=== PATIENT | male | born 1940 | race American Indian/Alaskan Native ===

== ENCOUNTER 2019-04-09 22:05 | Emergency (ER) | payer MEDICARE ==
--- NOTE | 2019-04-09 22:25 | Event Note ---
ED Screening Note Date of service: 04/09/19 Time: 22:24 ED Screening Note: 78 y o male presents withright knee pain and swelling x 2 days This initial assessment/diagnostic orders/clinical plan/treatment(s) is/are subject to change based on patients health status, clinical progression and re-assessment by fellow clinical providers in the ED. Further treatment and workup at subsequent clinical providers discretion. Patient/guardian urged not to elope from the ED as their condition may be serious if not clinically assessed and managed. Initial orders include: xr knee
--- NOTE | 2019-04-09 23:09 | XRay Report ---
HISTORY:MAIN: rt knee pain for 2 days COMPARISON: None. TECHNIQUE: AP lateral and obliques views were obtained FINDINGS: Bones: No fracture or dislocation. Joint spaces: Moderate narrowing of the patellofemoral articulation is noted and mild narrowing of th e femoral tibial articulation is noted.. Soft tissues: No significant abnormality. Additional findings: None. IMPRESSION: 1. Degenerative changes as noted Signer Name: Micah Oscar MD Signed: 04/09/2019 11:04 PM Workstation Name: [id number]
[2019-04-10] MEDS ORDERED: HYDROcodone/ACETAMINOPHEN 5-325 MG TAB PO ONE (00:24)
[2019-04-10] MEDS ORDERED: KETOROLAC 30 MG/1 ML INJ IM ONE (00:24)
--- NOTE | 2019-04-10 01:32 | Emergency Department Report ---
HPI - General Chief Complaint: Extremity Injury, Lower Time Seen by Provider: 04/10/19 00:05 - HPI HPI: 78-year-old male presents to the emergency department with a complaint of some right knee pain going on for the past 4-5 days and getting progressive worse. He also feels like it has become slightly swollen. He has trouble fully extending his knee. He flexes the knee pain seems to go down into the upper portion of his right calf. He denies any fall or trauma or inciting injury/event. He has a past medical history of remote colon cancer, CVA without residual deficits, xmg-[id number]-cnoormyot diabetes, hypertension. He has not taken anything for her symptoms prior to presentation. No recent travel, surgery or immobility. ED Past Medical Hx - Past Medical History Previous Medical History?: Yes Hx Hypertension: Yes Hx CVA: Yes Hx Diabetes: Yes Hx of Cancer: Yes (colon) - Surgical History Past Surgical History?: Yes Additional Surgical History: colon - Social History Smoking Status: Former Smoker Substance Use Type: None - Medications Home Medications: Home Medications Medication Instructions Recorded Confirmed Last Taken Type HYDROcodone/APAP 5-325 [Hammond 1 each PO Q6HR PRN #10 tablet 04/10/19 Unknown Rx 5/325] ED Review of Systems ROS: Stated complaint: LEG PAIN Other details as noted in HPI Comment: All other systems reviewed and negative Constitutional: denies: chills, fever Respiratory: denies: cough, shortness of breath Cardiovascular: edema (right knee swelling). denies: chest pain Musculoskeletal: joint swelling, arthralgia, myalgia Skin: denies: rash, change in color Neurological: denies: numbness, paresthesias Physical Exam - Physical Exam Vital Signs: Vital Signs 04/09/19 22:11 Temperature 99.2 F Pulse Rate 70 Respiratory 18 Rate Blood Pressure 151/68 O2 Sat by Pulse 98 Oximetry Physical Exam: GENERAL: The patient is well-developed well-nourished. HEENT: Normocephalic. Atraumatic. Patient has moist mucous membranes. EYES: Extraocular motions are intact. NECK: Supple. Trachea is midline. CHEST/LUNGS: Clear to auscultation. There is no respiratory distress noted. HEART/CARDIOVASCULAR: Regular. There is no tachycardia. ABDOMEN: There is no abdominal distention. SKIN: Skin is warm and dry. There is no appreciable edema to the affected right knee. No erythema, rash, warmth or fluctuance. NEURO: The patient is awake, alert, and oriented. The patient is cooperative. The patient has no focal neurologic deficits. The patient has normal speech. MUSCULOSKELETAL: There is some tenderness to palpation to the anterior right knee. Negative anterior and posterior drawer test. No laxity with valgus or varus stress of the affected right knee. There is some decreased extension to the right knee. ED Course Vital Signs 04/09/19 22:11 Temperature 99.2 F Pulse Rate 70 Respiratory 18 Rate Blood Pressure 151/68 O2 Sat by Pulse 98 Oximetry ED Medical Decision Making - Radiology Data Radiology results: image reviewed interpreted by me: X-ray of the right knee shows degenerative changes but does not show any fracture or dislocation. - Medical Decision Making Patient presents with a few days of atraumatic right knee pain. X-ray shows some osteoarthritis and degenerative changes but no fracture or dislocation. Do not see any appreciable swelling. There is no erythema, warmth or fluctuance. Patient was given a shot of Toradol and Hammond. Upon reevaluation he is feeling improved. He has been given crutches and a referral for an orthopedist. Since the patient says that sometimes the pain will radiate down into the calf, he has been set up for outpatient venous Doppler ultrasound. If positive he will be redirected to the emergency department. If negative he will continue on for outpatient follow-up with the orthopedist. - Differential Diagnosis osteoarthritis, bursitis, tendinitis, fracture, dislocation Critical Care Time: No Critical care attestation.: If time is entered above; I have spent that time in minutes in the direct care of this critically ill patient, excluding procedure time. ED Disposition Clinical Impression: Right knee pain Qualifiers: Chronicity: acute Qualified Code(s): M25.561 - Pain in right knee Disposition: DC-01 TO HOME OR SELFCARE Is pt being admited?: No Condition: Stable Instructions: Knee Pain (ED), Arthralgia (ED) Additional Instructions: Please follow up with an orthopedist in the next few days and I have given a referral for 2 local orthopedists. Return to the emergency Department with any worsening of your symptoms or any acute distress. You have been prescribed a medication that can be sedating. Therefore, do not take this medication prior to driving, working, being responsible for children, and it cannot be mixed with alcohol of any quantity. Please call the phone number listed on your discharge paperwork to schedule your outpatient venous Doppler ultrasound of your leg to rule out a blood clot. If positive, he will be redirected to the emergency department. If negative, continue with the previously mentioned outpatient plan. Prescriptions: HYDROcodone/APAP 5-325 [Hammond 5/325] 1 each PO Q6HR PRN #10 tablet PRN Reason: Pain Referrals: ALEXANDRA THEODORE MD [Staff Physician] - 2-3 Days [facility] [Provider Group] - 2-3 Days Time of Disposition: 01:31
[2019-04-10 01:57] VITALS: BP 142/72
== END 2019-04-10 01:58 | disposition home or self-care (01) ==
LOC: ED 22:05
DX: M25.561 Pain in right knee (principal); Z86.73 Personal history of transient ischemic attack (TIA), and cerebral infarction without residual deficits; Z87.891 Personal history of nicotine dependence; Z79.899 Other long term (current) drug therapy
CPT/HCPCS: 73562; 82962; 96372; 99284; J1885

== ENCOUNTER 2019-04-10 11:16 | Outpatient (CLI) | payer MEDICARE ==
--- NOTE | 2019-04-10 12:32 | Vascular Lab Report ---
DUPLEX DOPPLER LOWER EXTREMITY VEINS, RIGHT INDICATION: Right leg pain for 3 days, diabetes, hypertension, obesity. TECHNIQUE: Duplex doppler imaging was performed through the veins of the right lower extremity using venous compression and other maneuvers. COMPARISON: No relevant prior imaging study available. FINDINGS: Right Common femoral vein: Negative. Right Superficial femoral vein: Negative. Right Popliteal vein: Negative. Right Calf veins: Negative. Additional findings: None.. IMPRESSION: No sonographic evidence for DVT in the right lower extremity. Signer Name: South Ramírez Jr, MD Signed: 04/10/2019 12:27 PM Workstation Name: [id number]
== END 2019-04-10 11:17 | disposition home or self-care (01) ==
LOC: VAS 11:16
PROVIDERS: ATTEND Emergency Medicine
DX: M79.604 Pain in right leg (principal); E11.9 Type 2 diabetes mellitus without complications; I10 Essential (primary) hypertension; E66.9 Obesity, unspecified